=== PATIENT | female | born 1995 | race African-American/Black ===

== ENCOUNTER 2022-01-28 03:31 | Emergency (ER) | payer OTHER ==
[~2022-01-28] VITALS: Ht 152.4 cm; Wt 65.8 kg
[2022-01-28 03:35] VITALS: BP 111/60
--- NOTE | 2022-01-28 03:40 | NUR ---
TO LOBBY A/W BED AMBULATORY
--- NOTE | 2022-01-28 04:43 | NUR ---
PT TO BED #3
--- NOTE | 2022-01-28 04:58 | NUR ---
Dr. Frazier examining patient.
--- NOTE | 2022-01-28 05:02 | NUR ---
Dr. Frazier rectal/genital exam, removal pus and dressing with NAREN Oscar.
[2022-01-28] MEDS ORDERED: HYDROcodone/APAP 5/325 MG 1 TAB TAB PO ONE (05:15)
[2022-01-28] MEDS ORDERED: ACET-8386 PO (05:18)
[2022-01-28] MEDS ORDERED: SULF-59 PO (05:18)
[2022-01-28] MEDS ORDERED: NAPR-54 PO (05:18)
[2022-01-28 05:40] VITALS: BP 111/60
--- NOTE | 2022-01-28 05:40 | NUR ---
Patient discharged with v/s stable. Written and verbal after care instructions given and explained. Patient alert, oriented and verbalized understanding of instructions. Ambulatory with steady gait. All questions addressed prior to discharge. ID band removed. Patient advised to follow up with PMD. Rx of Naproxen, Firth and Bactrim given. Patient educated on indication of medication including possible reaction and side effects. Opportunity to ask questions provided and answered.
== END 2022-01-28 05:40 | disposition home or self-care (01) ==
LOC: MED 03:31
DX: L05.01 Pilonidal cyst with abscess (principal); Z79.899 Other long term (current) drug therapy
CPT/HCPCS: 10080; 99284